=== PATIENT | female | born 1960 | race Hispanic/Latino ===

== ENCOUNTER → 2024-09-17 | Outpatient (CLI) | payer OTHER, MEDICARE ==
[~2024-09-17] MED LIST: ASPI-1012 PO; CELE200 PO; FENOFIBRATE PO; GABA-531 PO; HYDR-2132 PO; METF-444 PO; OMEP20CA12 PO; OXYB5TAB20 PO; SIMV-43 PO
== END | disposition home or self-care (01) ==
LOC: RAH 13:40
PROVIDERS: ATTEND Internal Medicine
DX: Z12.31 Encounter for screening mammogram for malignant neoplasm of breast (principal)
CPT/HCPCS: 77067